=== PATIENT | female | born 1970 | race Caucasian/White ===

== ENCOUNTER 2024-10-14 20:20 | Emergency (ER) | payer MEDICARE, SELFPAY ==
[2024-10-14 20:40] VITALS: BP 150/95; PULSE 85; RESP 17; TEMP 36.9; O2SAT 98; BMI 21.6
[2024-10-14 21:16] LABS: Add Manual Diff / Slide Review NO; Basophils Absolute Auto 100 /uL (0-100); Basophils Percent Auto 0.7 % (0-2); Eosinophils Absolute Auto 200 /uL (0-450); Eosinophils Percent Auto 1.9 % (2-4); Hematocrit 40.5 % (36-46); Hemoglobin 13.8 g/dL (12.0-16.0); Lymphocytes Absolute Auto 2300 /uL (1100-4500); Lymphocytes Percent Auto 26.9 % (25-40); Mean Corpuscular Hemoglobin 31.4 PG (26-34); Mean Corpuscular Volume 92.5 fL (80-100); Monocytes Absolute Auto 700 /uL (0-900); Neutrophils Absolute Auto 5300 /uL (1500-7000); Neutrophils Percent Auto 62.5 % (50-75); Platelet Count 331 X10^3/uL (150-400); Red Blood Cell Count 4.38 X10^6/uL (4.0-5.2); Red Cell Distribution Width 12.7 % (11.6-14.8); White Blood Cell Count 8.6 X10^3/uL (4.5-11.0)
[2024-10-14 21:23] LABS: Alanine Aminotransferase 23 IU/L (<35); Albumin 4.7 g/dL (3.5-5.0); Albumin Globulin Ratio 1.6 (1.0-2.8); Alkaline Phosphatase 55 U/L (38-126); Aspartate Aminotransferase 27 IU/L (14-36); Bilirubin Total 0.4 mg/dL (0.2-1.3); Blood Urea Nitrogen 18 mg/dL (7-17); Calcium 9.9 mg/dL (8.4-10.2); Carbon Dioxide 29 mmol/L (22-32); Chloride 101 mmol/L (98-107); Estimated Glomerular Filt Rate > 60 mL/min (>60); Globulin 2.9 g/dL (1.7-4.1); Glucose 114 mg/dL (70-100); HEMOLYSIS < 15 (0-50); Lipase 153 U/L (23-300); Potassium 4.1 mmol/L (3.4-5.1); Sodium 136 mmol/L (137-145); Total Protein 7.6 g/dL (6.3-8.2)
--- NOTE | 2024-10-14 22:04 | ED.ABDPAIN ---
HPI - Abdominal Pain General Chief Complaint: Abdominal Pain Stated Complaint: Hernia, low grade fever, PCP sent in Time Seen by Provider: 10/14/24 22:03 Source: patient Mode of arrival: Ambulatory History of Present Illness HPI narrative: 54-year-old female with right-sided ventral hernia awaiting outpatient surgery consultation at [facility], complains of low-grade fever to 100.5, was concerned it might be related to her hernia, or some other intestinal problem. She is having bowel movements, no black or red stools. No nausea or vomiting. Denies shortness of breath, cough, sore throat, ear pain, headache symptoms. She also denies frequency of urination or painful urination. No flank pain or back pain. 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 Related Data Allergies Allergy/AdvReac Type Severity Reaction Status Date / Time Sulfa (Sulfonamide Allergy ITCHING Verified 10/14/24 20:49 Antibiotics) oranges Allergy Uncoded 10/14/24 20:49 Patient History Social History Smoking Status: Never smoker Smoking Status: Never smoker Exam Narrative Exam Narrative: GENERAL: Well-developed patient, in mild distress. HEAD: Atraumatic. Normocephalic. EYES: Pupils equal round and reactive. Extraocular motions intact. No scleral icterus. No injection or drainage. ENT: Nose without bleeding, purulent drainage. Throat without erythema, tonsillar hypertrophy or exudate. Airway patent. NECK: Trachea midline. Non tender CARDIOVASCULAR: Regular rate and rhythm without murmurs, gallops, or rubs. RESPIRATORY: Clear to auscultation. Breath sounds equal bilaterally. No wheezes, rales, or rhonchi. GASTROINTESTINAL: Flat, soft, nontender, nondistended, with Valsalva there might be some ventral hernia right sided few cm above femoral crease, present with Valsalva, absent without Valsalva. Normal bowel tones noted, without rushes or tinkles. EXTREMITIES: No edema or joint tenderness. BACK: Nontender without deformity or crepitance. No flank tenderness. NEURO: AOx3. Motor functions grossly nonfocal SKIN: No rash or erythema of visible areas Initial Vital Signs Initial Vital Signs: Vital Signs Temperature 98.5 F 10/14/24 20:40 Pulse Rate 85 10/14/24 20:40 Respiratory Rate 17 10/14/24 20:40 Blood Pressure 150/95 H 10/14/24 20:40 Pulse Oximetry 98 10/14/24 20:40 Oxygen Delivery Method Room Air 10/14/24 20:40 Course Orders Ordered: ED Orders 10/14/24 20:50 EKG-12 Lead Stat 10/14/24 21:00 Complete Blood Count AUTO DIFF Stat Comprehensive Metabolic Panel Stat Lipase Stat 10/14/24 21:46 Urine Microscopic Stat 10/14/24 21:53 Urine Culture Stat 10/14/24 22:04 CT abdomen pelvis w con Stat Discontinued Medications Ondansetron HCl (Ondansetron 4 Mg/2 Ml Inj) 4 mg IV NOW PRN PRN Reason: Nausea And Vomiting Ondansetron HCl (Ondansetron 4 Mg Odt) 4 mg PO NOW PRN PRN Reason: Nausea And Vomiting Vital Signs Vital signs: Vital Signs - 8 hr 10/14/24 20:40 10/14/24 22:20 10/14/24 22:31 Temperature 98.5 F Pulse Rate 85 81 73 Respiratory Rate 17 Blood Pressure 150/95 H Pulse Oximetry 98 100 100 Oxygen Delivery Method Room Air 10/14/24 23:00 Temperature Pulse Rate 75 Respiratory Rate Blood Pressure 145/89 H Pulse Oximetry 100 Oxygen Delivery Method MDM - Abdominal Pain Lab Data Attestation: I reviewed the patient's lab results. Lab results narrative: White blood cell count 8600, hemoglobin 13.8, platelets adequate. Basic metabolic panel unremarkable. Liver functions and lipase normal. Urine dip negative. 10/14/24 21:00 10/14/24 21:00 Labs: Lab Results 10/14/24 10/14/24 Range/Units 21:00 21:46 WBC 8.6 (4.5-11.0) X10^3/uL RBC 4.38 (4.0-5.2) X10^6/uL Hgb 13.8 (12.0-16.0) g/dL Hct 40.5 (36-46) % MCV 92.5 (80-100) fL MCH 31.4 (26-34) PG MCHC 34.0 (30-36) % RDW 12.7 (11.6-14.8) % Plt Count 331 (150-400) X10^3/uL Neut % (Auto) 62.5 (50-75) % Lymph % (Auto) 26.9 (25-40) % Frederick % (Auto) 8.0 (3-14) % Eos % (Auto) 1.9 L (2-4) % Baso % (Auto) 0.7 (0-2) % Neut # (Auto) 5300 (5373-0273) /uL Lymph # (Auto) 2300 (1087-3937) /uL Frederick # (Auto) 700 (0-900) /uL Eos # (Auto) 200 (0-450) /uL Baso # (Auto) 100 (0-100) /uL Sodium 136 L (137-145) mmol/L Potassium 4.1 (3.4-5.1) mmol/L Chloride 101 (98-107) mmol/L Carbon Dioxide 29 (22-32) mmol/L BUN 18 H (7-17) mg/dL Creatinine 0.82 (0.52-1.04) mg/dL Estimated GFR > 60 (>60) mL/min BUN/Creatinine Ratio 22.0 (6-22) Glucose 114 H (70-100) mg/dL Calcium 9.9 (8.4-10.2) mg/dL Total Bilirubin 0.4 (0.2-1.3) mg/dL AST 27 (14-36) IU/L ALT 23 (<35) IU/L Alkaline Phosphatase 55 (38-126) U/L Total Protein 7.6 (6.3-8.2) g/dL Albumin 4.7 (3.5-5.0) g/dL Globulin 2.9 (1.7-4.1) g/dL Albumin/Globulin Ratio 1.6 (1.0-2.8) Lipase 153 (23-300) U/L Urine RBC None seen (0-5/HPF) Urine WBC None seen (0-5/HPF) Ur Squamous Epith Cells None seen (0-5/HPF) Urine Bacteria None seen (None) Ur Culture Indicated? Cult not indicated Vol Urine Centrifuged 10ml (spun) Point of care testing: Urine Dip Bedside Urine Glucose Negative Bedside Urine Bilirubin - Negative Bedside Urine Ketone - Negative Urine Specific [place] 1.015 Bedside Urine Occult Blood +/- Bedside Urine pH 6.0 Bedside Urine Protein - Negative Bedside Urine Urobilinogen - Negative Bedside Urine Nitrite - Negative Bedside Urine Leukocytes - Negative Esterase Imaging Data CT scan - abdomen/pelvis: Radiologist's Impression: [address] [address] [address] Scan Report Signed Patient: Daisy Medina MR#: [id number] : 1970 Acct:[id number] Age/Sex: 54 / F Date of Service: 10/14/24 Loc: ED Accession Number: [id number] Procedure: CT abdomen pelvis w con Ordering Provider: Varun Avelar MD PROCEDURE: CT ABDOMEN PELVIS W CON INDICATIONS: abdomen pain TECHNIQUE: After the administration of intravenous contrast, axial sections acquired from the lung bases to the pubic symphysis. Coronal and sagittal reformats were performed. For radiation dose reduction, the following was used: automated exposure control, adjustment of mA and/or kV according to patient size. COMPARISON: None. FINDINGS: Image quality: Diagnostic. Lower Chest: No significant findings. ABDOMEN: Liver: No solid mass. Mild steatosis. Gallbladder: No radiopaque gallstones or wall thickening. Biliary ducts: No biliary dilation. Pancreas: No ductal dilation. Spleen: Size is within normal limits. Adrenal Glands: No adrenal nodules. Kidneys and Ureters: No hydronephrosis. No solid mass. No complex renal cystic lesion which requires follow up. Stomach and Bowel: Normal colonic caliber, without significant wall thickening. Prominent colonic stool. No obstruction. Peritoneum: No abnormal intraperitoneal fluid. No free air. Ventral Wall: No significant ventral hernia. Abdominal Nodes: No retroperitoneal or mesenteric adenopathy by size criteria. Vessels: Aorta and inferior vena cava are normal in size. PELVIS: Pelvic Organs: Unremarkable. Bladder: No bladder wall thickening, accounting for underdistention. Pelvic Nodes: No enlarged lymph nodes. Miscellaneous: No inguinal hernias are seen. Bones: No aggressive osseous abnormality. IMPRESSION: Prominent colonic stool without obstruction. Dictated by: Leyda Shane M.D. on 10/14/2024 at 22:25 Approved by: Leyda Shane M.D. on 10/14/2024 at 22:27 ECG Data Attestation: I personally reviewed and interpreted this ECG as follows: Interpretation: Normal sinus rhythm with rate of 71, no obvious ST segment elevation or depression changes. FL 152, QRS 100, QTC 454. MDM Narrative Medical decision making narrative: 54-year-old female with right ventral hernia and low-grade fever, concerned that they might be related, no fever on triage here, afebrile, sirs screen negative. Possible right ventral hernia with Valsalva. No persisting ventral mass. White blood cell count unremarkable, urine dip negative. CT abdomen and pelvis imaging requested. CT abdomen and pelvis shows colonic stool, no obstructive pattern. See radiology report. Copy of the report given to patient, with discussion. We discussed constipation as possible cause of some discomfort, she has not believe she is constipated, was concerned about low-grade to your and possible causes, workup thus far here has been negative. Encouraged to follow up for elective surgery consultation for possible ventral hernia, awaiting consultation at [facility]. Given local general surgery contact information as well, if she would like to try to be seen prior for consultation. No source of obvious infection identified now. Consider stool softener laxative, though she does not feel that she has constipation, but is made aware of the colonic stool found on CT scanning. Home with family/friend. Return precautions discussed. Discharge Plan Departure Patient Disposition: Home Clinical Impression: Abdominal pain Activity Restrictions/Additional Instructions: Right-sided abdominal pain with reported low-grade fever, no fever noted on triage here. Possible right ventral hernia. Recent heavy lifting, possible exacerbation of hernia like symptoms. Blood tests and urine dip testing reassuring. CT abdomen and pelvis imaging showed the presence of colonic stool but no obstructive changes, no acute changes. Copy of the radiologist report was given with discussion of results. Could consider stool softener or prune juice to treat colonic stool if it is related to any abdominal discomfort. You are awaiting outpatient elective surgery consultation for possible ventral hernia. No obstruction or strangulation or incarceration noted on imaging today. Local general surgery contact information also provided, if you could be seen earlier in the [facility] surgical system. Encouraged to drink plenty of fluids. Consider use of Tylenol as needed for discomfort. Follow up with General surgery as planned. Return to this/nearest emergency department for any change worsening symptoms or any concerns prior Referrals: Mike Ricks MD [Physician] - Thu Washington MD [Physician] - Leeann Cao MD [Physician] - Franki Hyde MD [Physician] - Stand Alone Forms: Patient Portal/API/Survey
[2024-10-14 22:20] VITALS: PULSE 81; O2SAT 100
[2024-10-14 22:20] LABS: Bacteria Urine None Seen; RBC Urine None Seen (0-5/HPF); Squamous Epithelial Cell Urine None Seen (0-5/HPF); Urine Volume 10mL (spun); WBC Urine None Seen (0-5/HPF)
[2024-10-14 22:21] LABS: Culture Indicated Urine Cult Not Indicated
[2024-10-14 22:31] VITALS: PULSE 73; O2SAT 100
--- NOTE | 2024-10-14 22:57 | EKG_ITS ---
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
[2024-10-14 23:00] VITALS: BP 145/89; PULSE 75; O2SAT 100
== END 2024-10-14 23:11 | disposition home or self-care (01) ==
PROVIDERS: Emergency Provider Emergency Medicine
DX: R10.9 Unspecified abdominal pain (principal); K43.9 Ventral hernia without obstruction or gangrene; R50.9 Fever, unspecified
CPT/HCPCS: 36415; 74177; 80053; 81003; 81015; 83690; 85025; 87086; 93005; 99283; 99284; Q9967